=== PATIENT | female | born 1960 | race Caucasian/White ===

== ENCOUNTER → 2018-07-16 | Outpatient (CLI) | payer MEDICAID, MEDICARE | END | disposition home or self-care (01) | LOC: CFH 12:49 | PROVIDERS: ATTEND Family Medicine | DX: Z12.31 Encounter for screening mammogram for malignant neoplasm of breast (principal) | CPT/HCPCS: 77067 ==

== ENCOUNTER 2019-11-04 13:50 | Emergency (ER) | payer MEDICARE ==
[~2019-11-04] VITALS: Ht 170.2 cm; Wt 58.8 kg
[2019-11-04 13:56] VITALS: BP 145/73
== END 2019-11-04 17:39 | disposition left against medical advice (07) ==
LOC: ED 17:31
DX: K46.9 Unspecified abdominal hernia without obstruction or gangrene (principal)
CPT/HCPCS: 99281